=== PATIENT | female | born 1995 | race Caucasian/White ===

== ENCOUNTER 2023-02-27 04:57 | Day surgery (SDC) | payer OTHER ==
[~2023-02-27 04:57] MED LIST: PAMELOR50 M1 PO
== END 2023-02-27 14:50 | disposition home or self-care (01) ==
LOC: CIR.AMB 04:57
PROVIDERS: ATTEND Obstetrics & Gynecology
DX: N84.0 Polyp of corpus uteri (principal); N93.8 Other specified abnormal uterine and vaginal bleeding; N87.9 Dysplasia of cervix uteri, unspecified; Z20.822 Contact with and (suspected) exposure to COVID-19; E78.00 Pure hypercholesterolemia, unspecified; I10 Essential (primary) hypertension

== ENCOUNTER 2023-04-28 14:49 | Emergency (ER) | payer OTHER ==
[~2023-04-28] VITALS: Ht 170.2 cm; Wt 65.8 kg
== END 2023-04-28 21:12 | disposition home or self-care (01) ==
LOC: ER 14:49
DX: N93.9 Abnormal uterine and vaginal bleeding, unspecified (principal)